=== PATIENT | female | born 1990 | race Caucasian/White ===

== ENCOUNTER 2016-10-18 15:29 | Emergency (ER) | payer OTHER, BC ==
[2016-10-18 15:53] VITALS: BP 136/75
[2016-10-18] MEDS ORDERED: NORCOTAB PO (17:21)
[2016-10-18] MEDS ORDERED: NORCO 5/325MG TABLET (BULK FOR ED) PO ONE (17:30)
--- NOTE | 2016-10-19 07:32 | REP ---
REASON: Pain in the neck after trauma. PRIORS: None. Vertebral body height and alignment is within normal limits. The disc spaces are symmetric and well maintained. The facet joints are well aligned bilaterally. There is no evidence of an acute fracture. There is no abnormal paraspinal soft tissue swelling. IMPRESSION: No acute fracture. Signed by Donnie Rivera DO 10/19/2016 03:45 P
--- NOTE | 2016-10-20 07:43 | REP ---
Clinical: Trauma. Technique: AP, lateral, bilateral oblique views of the right hand. Findings: No obvious acute fracture or dislocation appreciated. Skeletal structures, joint spaces, and surrounding soft tissues appear relatively normal for age. No subcutaneous emphysema or radiodense foreign body. Impression: Acute fracture or dislocation. Signed by David Swift MD 10/20/2016 07:36 A
--- NOTE | 2016-10-20 07:45 | REP ---
Clinical: Trauma. Technique: AP, lateral, bilateral oblique and sunrise views of the left knee. Findings: Lateral view demonstrates soft tissue swelling and suspected joint and suprapatellar effusion. No obvious acute fracture or dislocation identified. Impression: Swelling and effusion consistent with trauma. No obvious acute fracture or dislocation. If the patient remains symptomatic consider CT or MRI for further investigation. Signed by David Swift MD 10/20/2016 07:37 A
== END 2016-10-18 17:58 | disposition home or self-care (01) ==
LOC: EDBD 15:29 → M ED 17:20
DX: S80.02XA Contusion of left knee, initial encounter (principal); S13.4XXA Sprain of ligaments of cervical spine, initial encounter; V49.40XA Driver injured in collision with unspecified motor vehicles in traffic accident, initial encounter; Y92.410 Unspecified street and highway as the place of occurrence of the external cause; Y93.89 Activity, other specified; Y99.8 Other external cause status; Z88.8 Allergy status to other drugs, medicaments and biological substances

== ENCOUNTER → 2018-08-24 | Outpatient (REF) | payer OTHER, BC ==
[~2018-08-24] MED LIST: NORCOTAB PO
[2018-08-24 20:47] LABS: CHLAMYDIA DNA AMPLIFICATION NEGATIVE (NEGATIVE); GC DNA AMPLIFICATION NEGATIVE (NEGATIVE)
== END ==
LOC: M LAB REF 17:09
PROVIDERS: ATTEND Advanced Practice Midwife
DX: Z01.419 Encounter for gynecological examination (general) (routine) without abnormal findings (principal)

== ENCOUNTER → 2018-08-25 | Outpatient (CLI) | payer BC ==
[2018-08-25 09:33] LABS: BASO # 0.1 10^3/uL (0.0-0.2); BASO % 0.6 % (0.0-1.0); EOS # 0.2 10^3/uL (0.0-0.50); EOS % 2.3 % (0.0-3.0); HEMATOCRIT 41.4 % (36.0-47.0); HEMOGLOBIN 13.7 g/dl (12.0-15.5); LYMPH # 2.7 10^3/uL (1.5-6.5); LYMPH % 28.5 % (24.0-44.0); MEAN CORPUSCULAR HEMOGLOBIN 28.9 pg (27.0-33.0); MEAN CORPUSCULAR HGB CONC 33.1 g/dl (32.0-36.5); MEAN CORPUSCULAR VOLUME 87.3 fl (80.0-96.0); MONO # 0.6 10^3/uL (0.0-0.8); MONO % 6.6 % (0.0-5.0); NEUTROPHILS # 5.9 10^3/uL (1.8-7.7); NEUTROPHILS % 61.8 % (36.0-66.0); PLATELET COUNT, AUTOMATED 308 10^3/uL (150-450); RED BLOOD COUNT 4.74 10^6/uL (4.00-5.40); WHITE BLOOD COUNT 9.6 10^3/uL (4.0-10.0)
[2018-08-25 10:08] LABS: ALBUMIN 3.6 GM/DL (3.2-5.2); ALT/SGPT 17 U/L (12-78); BILIRUBIN,TOTAL 0.5 MG/DL (0.2-1.0); BLOOD UREA NITROGEN 13 MG/DL (7-18); CALCIUM LEVEL 8.6 MG/DL (8.5-10.1); CARBON DIOXIDE LEVEL 27 MEQ/L (21-32); CHLORIDE LEVEL 105 MEQ/L (98-107); CHOLESTEROL LEVEL 141 MG/DL (<200); CREATININE FOR GFR 0.75 MG/DL (0.55-1.30); FREE T4 1.19 NG/DL (0.76-1.46); GLOMERULAR FILTRATION RATE > 60.0 (>60); GLUCOSE, FASTING 84 MG/DL (70-100); HDL CHOLESTEROL 50 MG/DL (>40); LDL CHOLESTEROL 79 MG/DL (<100); NON-HDL-C 91 MG/DL; POTASSIUM SERUM 4.2 MEQ/L (3.5-5.1); SODIUM LEVEL 139 MEQ/L (136-145); TOTAL PROTEIN 7.3 GM/DL (6.4-8.2); TRIGLYCERIDES LEVEL 60 MG/DL (<150)
== END ==
LOC: M WUC 08:07
PROVIDERS: ATTEND Advanced Practice Midwife
DX: Z12.4 Encounter for screening for malignant neoplasm of cervix (principal)

== ENCOUNTER → 2022-08-31 | Outpatient (REF) | payer MEDICARE, BC ==
[~2022-08-31] MED LIST changes: +HYDR-3715 PO; -NORCOTAB PO
== END ==
LOC: M SFHCWAGY 13:22
PROVIDERS: ATTEND Advanced Practice Midwife
DX: Z12.4 Encounter for screening for malignant neoplasm of cervix (principal)
CPT/HCPCS: 87624; G0123